=== PATIENT | female | born 1985 | race Caucasian/White ===

== ENCOUNTER 2020-10-04 08:30 | Emergency (ER) | payer OTHER ==
[~2020-10-04] VITALS: Ht 170.2 cm; Wt 84.4 kg
[2020-10-04 08:30] VITALS: BP 148/101
--- NOTE | 2020-10-04 09:03 | PHYS DOC ---
Past History Past Medical History: Hypertension, Migraines Past Surgical History: No Surgical History Alcohol Use: None Adult General Chief Complaint Chief Complaint: HYPERTENSION HPI HPI Patient is a 34-year-old female here for high blood pressure. She has history of hypertension, has taken medications in the past but has been off said medications for greater than 1 year. She used to take HCTZ. Patient has been checking her blood pressure intermittently since being off her medications and reports readings on average of 120-130/80s. Nonetheless, yesterday evening she took her blood pressure and it was found to be at 163/110 which concerned her. She tried calling her primary care physician to discuss this and was scheduled f or follow-up this upcoming week for BP recheck. Nonetheless, patient woke up this morning with dull headache and blood pressure still greater than 130/90 which concerned her prompting her to come into our ER for evaluation. She has no vision changes, no chest pain, no shortness of breath, no changes in motor or sensory function, no neurologic deficits noted Review of Systems Review of Systems Fourteen body systems of review of systems have been reviewed. See HPI for pertinent positives and negative responses, other whitaker all other systems are negative, non-pertinent or non-contributory Allergies Allergies Allergies Coded Allergies Type Severity Reaction Last Updated Verified erythromycin base Allergy Unknown 10/04/20 Yes Physical Exam Physical Exam Constitutional: Well developed, well nourished, no acute distress, non-toxic appearance. HENT: Normocephalic, atraumatic, bilateral external ears normal, oropharynx moist, no oral exudates, nose normal. Eyes: PERRLA, EOMI, conjunctiva normal, no discharge. Neck: Normal range of motion, no tenderness, supple, no stridor. Cardiovascular: Heart rate regular, sinus rhythm, no murmurs rubs or gallops Lungs & Thorax: Bilateral breath sounds clear to auscultation Abdomen: Bowel sounds normal, soft, no tenderness, no masses, no pulsatile masses. Nonsurgical abdomen, no peritoneal signs Skin: Warm, dry, no erythema, no rash. Back: No tenderness, no CVA tenderness. Extremities: No tenderness, no cyanosis, no clubbing, ROM intact, no edema. Neurologic: Alert and oriented X 3, grossly normal motor & sensory function, no focal deficits noted. Psychologic: Affect normal, judgement normal, anxious mood Current Patient Data Vital Signs Vital Signs Date Time Temp Pulse Resp B/P (MAP) Pulse Ox O2 Delivery O2 Flow Rate FiO2 10/04/20 08:30 98.5 85 20 148/101 (117) 98 Room Air EKG EKG [] Radiology/Procedures Radiology/Procedures [] Heart Score Risk Factors: Risk Factors: DM, Current or recent (<one month) smoker, HTN, HLP, family history of CAD, obesity. Risk Scores: Risk Factors: DM, Current or recent (<one month) smoker, HTN, HLP, family history of CAD, obesity. Course & Med Decision Making Course & Med Decision Making Airway patent, breathing nonlabored, vitals remarkable for mild hypertensive reading at 150/100. History and physical exam grossly nonconcerning, no indication for further ER intervention and/or work-up at this time I discussed my hesitancy of starting patient on blood pressure medication given recent high blood pressure readings greater than 140/90 in the past 12 hours. She is anxious about her health which I feel is contributory. She has close follow-up with her PCP this upcoming week which I feel is appropriate, she can have work-up and review of blood pressure log to determine if medical intervention is actually necessary or if this is transient elevation in blood pressure Strict return precautions were discussed with good understanding by patient, all questions and concerns addressed prior to ER departure in stable condition Dragon Disclaimer Dragon Disclaimer This electronic medical record was generated, in whole or in part, using a voice recognition dictation system. Departure Departure: Impression: Primary Impression: Elevated blood pressure reading Additional Impressions: History of hypertension Anxiety about health Disposition: 01 DC HOME SELF CARE/HOMELESS Condition: STABLE Referrals: GINA VILLAR MD (PCP) Patient Instructions: Form - Blood Pressure Record Sheet, How to Take Your Blood Pressure, [id number] Additional Instructions: As discussed prior to ER departure, please ensure you keep follow-up with your primary care physician this upcoming week to discuss history of hypertension and recent hypertensive readings. Please ensure you bring your blood pressure log to said visit As discussed today, I would continue supportive care for your mild dull headac hes using Tylenol as needed, utilize deep breathing exercises and reduce home stresses much as possible If any concerning signs or symptoms present prior to outpatient follow-up please do not hesitate to come back for repeat evaluation and intervention as indicated It was a pleasure to take care of you and I wish you the best going forward Problem Qualifiers MIGUEL BAZZI DO Oct 04, 2020 09:03
== END 2020-10-04 09:00 | disposition home or self-care (01) ==
LOC: ER 08:30
DX: R03.0 Elevated blood-pressure reading, without diagnosis of hypertension (principal); I10 Essential (primary) hypertension; G43.909 Migraine, unspecified, not intractable, without status migrainosus; Z88.1 Allergy status to other antibiotic agents
CPT/HCPCS: 99281

== ENCOUNTER 2020-10-06 14:18 | Emergency (ER) | payer OTHER ==
[~2020-10-06] VITALS: Ht 175.3 cm; Wt 84.7 kg
[2020-10-06] MEDS ORDERED: hydroCHLOROthiazide 25 MG TABLET PO ONE (14:45)
--- NOTE | 2020-10-06 15:11 | RAD ---
INDICATION: Reason: chest tightness,ELEVATED BP / Spl. Instructions: / History: COMPARISON: None. FINDINGS: Single view of chest obtained. Cardiac silhouette is unremarkable. No definite focal airspace consolidation or pulmonary edema. IMPRESSION: * No focal airspace consolidation. Electronically signed by: Wilver Waldron MD (10/06/2020 3:08 PM) [id number]
[2020-10-06] MEDS ORDERED: HYDR-2145 PO (16:02)
--- NOTE | 2020-10-06 16:04 | PHYS DOC ---
Past History Past Medical History: Hypertension, Other Additional Past Medical Histor: lyme disease Past Surgical History: Other Additional Past Surgical Histo: Lasix Alcohol Use: None Adult General Chief Complaint Chief Complaint: HYPERTENSION HPI HPI Patient is a 34 year old female who presents to the Emergency Room complaining of high blood pressure. She had a headache on Monday and took her blood pressure at that time. She states that it was elevated at 166/109. She has been taking over the last few days and it has remained elevated. She used to be on blood pressure medicine but was weaned off as her blood pressure improved. She states that she saw her primary care physician today over a Zoom and they told her that they would need to see her in clinic to start hypertensive medication at that that they cannot see her today as she cannot have 2 visits in 1 day. Patient does not have any symptoms of high blood pressure. She is tearful and worried because her grandma recently was diagnosed with hypertrophic cardiomyopathy. Review of Systems Review of Systems Complete ROS is negative unless otherwise documented in HPI Current Medications Current Medications Current Medications Medications (Trade) Dose Ordered Sig/Chrystal Start Time Stop Time Status Last Admin Dose Admin Hydrochlorothiazide (Hydrodiuril) 25 mg 1X ONCE 10/06/20 14:45 10/06/20 14:53 DC 10/06/20 15:11 25 MG Allergies Allergies Allergies Coded Allergies Type Severity Reaction Last Updated Verified erythromycin base Allergy Unknown 10/04/20 Yes Physical Exam Physical Exam General: Awake, alert, NAD. Well Nourished, well hydrated. Cooperative HEENT: Atraumatic, EOMI, PERRL, airway patent, moist oral mucosa Neck: Supple, trachea midline Respiratory: CTA bilaterally, normal effort, no wheezing/crackles CV: RRR, no murmur, cap refill <2 GI: Soft, nondistended, nontender, no masses MSK: No obvious deformities Skin: Warm, dry, intact Neuro: A&O x3, speech NL, sensory and motor grossly intact, no focal deficits Psych: Normal affect, normal mood, not suicidal or homicidal Current Patient Data Vital Signs Vital Signs Date Time Temp Pulse Resp B/P (MAP) Pulse Ox O2 Delivery O2 Flow Rate FiO2 10/06/20 15:35 155/102 (119) 10/06/20 14:36 99.2 95 18 96 Room Air Lab Results Laboratory Tests Test 10/06/20 15:16 POC Urine HCG, Qualitative hcg negative (Negative) EKG EKG [] Radiology/Procedures Radiology/Procedures [] Heart Score Risk Factors: Risk Factors: DM, Current or recent (<one month) smoker, HTN, HLP, family history of CAD, obesity. Risk Scores: Risk Factors: DM, Current or recent (<one month) smoker, HTN, HLP, family history of CAD, obesity. Course & Med Decision Making Course & Med Decision Making Pertinent Labs and Imaging studies reviewed. (See chart for details) Patient is a 4-year-old female presents to the emergency room with asymptomatic high blood pressure. Chest x-ray was done and is normal. Patient has negative test. We will start her on hydrochlorothiazide. She will follow-up with her primary care physician. I will refer her to cardiology to be evaluated for HOCM. Patient's test results and vitals while in the ED were fully reviewed and discussed with the patient. Patient is stable and at this time does not need admission to the hospital. We have discussed strict return precautions and the importance of following up with their Primary Care Physician. Patient stated understanding and was given an opportunity to ask any questions. Patient is in agreement with plan. Dragon Disclaimer Dragon Disclaimer This electronic medical record was generated, in whole or in part, using a voice recognition dictation system. Departure Departure: Impression: Primary Impression: Hypertension Disposition: 01 DC HOME SELF CARE/HOMELESS Condition: STABLE Referrals: GINA VILLAR MD (PCP) AB PATEL MD Patient Instructions: Hypertension Scripts Hydrochlorothiazide (HYDROCHLOROTHIAZIDE TABLET ) 25 Mg Tablet 25 MG PO DAILY for DIURETIC for 30 Days, #30 TAB 0 Refills Prov: JESSICA SIMON MD 10/06/20 JESSICA SIMON MD Oct 06, 2020 16:04
[2020-10-06 16:07] VITALS: BP 145/102
== END 2020-10-06 16:30 | disposition home or self-care (01) ==
LOC: ER 14:18
DX: I10 Essential (primary) hypertension (principal); Z88.1 Allergy status to other antibiotic agents
CPT/HCPCS: 71045; 81025; 99283

== ENCOUNTER 2022-01-14 09:47 | Emergency (ER) | payer OTHER ==
[~2022-01-14] VITALS: Ht 175.3 cm; Wt 84.7 kg
[~2022-01-14 09:47] MED LIST: HYDR-2145 PO
[2022-01-14 09:49] VITALS: BP 137/92
[2022-01-14] MEDS: ACETAMINOPHEN 500 MG TABLET PO ONE (10:00)
[2022-01-14] MEDS: IBUPROFEN 800 MG TABLET. PO ONE (10:15)
--- NOTE | 2022-01-14 10:28 | RAD ---
XR KNEE _3 VIEWS_LT Clinical Indication: Reason: Fall on ice, left knee injury and pain / Spl. Instructions: / History: Comparison: None. Findings: There is acute traumatic intra-articular longitudinal nondisplaced fracture of the tibial plateau. Th e fracture line reaches the medial cortex of the diaphysis. The intra-articular fracture appears to i nvolve the lateral tibial plateau. There is a small lipohemarthrosis. The tricompartmental joint spac es are maintained. There is patella alyssa. Well-corticated ossific body at the tibial tubercle may be sequela of distant Brenda-Schlatter. IMPRESSION: 1. Acute traumatic intra-articular, nondisplaced longitudinal fracture of the tibial plateau. 2. Small lipohemarthrosis. 3. Patella alyssa. Electronically signed by: Jerome Strickland MD (01/14/2022 10:26 AM) [id number]
[2022-01-14] MEDS ORDERED: IBUP-571 PO (12:08)
[2022-01-14] MEDS ORDERED: MORP-62 PO (12:08)
--- NOTE | 2022-01-14 12:08 | PHYS DOC ---
Past History Past Medical History: Hypertension, Other Additional Past Medical Histor: lyme disease Past Surgical History: Other Additional Past Surgical Histo: Lasix Alcohol Use: None Adult General Chief Complaint Chief Complaint: KNEE INJURY HPI HPI The patient is a 36-year-old female with a history of hypertension and who is otherwise healthy. She presents for evaluation of left knee discomfort anteriorly/inferiorly with onset in the aftermath of a ground-level slip and fall onto the ice prior to arrival. Denies hitting or hurting any other part of her body during the episode. Has not been able to bear weight secondary to discomfort. Review of Systems Review of Systems A 12 point review of systems was completed and was negative except where noted in HPI above. Current Medications Current Medications Current Medications Medications (Trade) Dose Ordered Sig/Chrystal Start Time Stop Time Status Last Admin Dose Admin Acetaminophen (Tylenol) 1,000 mg 1X ONCE 01/14/22 10:00 01/14/22 10:06 DC 01/14/22 10:00 1,000 MG Ibuprofen (Motrin) 800 mg 1X ONCE 01/14/22 10:15 01/14/22 10:16 DC 01/14/22 10:15 800 MG Allergies Allergies Allergies Coded Allergies Type Severity Reaction Last Updated Verified erythromycin base Allergy Unknown 10/04/20 Yes Physical Exam Physical Exam 36-year-old female appearing nontoxic and in no acute distress. Head is normocephalic and atraumatic. Neck is supple and nontender. Oropharynx is moist. Lungs are clear to auscultation at all stations. There is a normal S1 and S2 without rubs or gallops and capillary refill is appropriate, less than 2 seconds globally. Abdomen is soft, nontender nondistended. Skin is warm and dry without cyanosis, clubbing or edema. Psychiatrically, the patient demonstrates appropriate mood and affect and is alert. Evaluation of the left lower extremity is remarkable for mild tenderness and swelling to the inferior aspect of the left knee anteriorly. Mild discomfort with ranging but patient does have full active and passive range of motion at the left knee. No discomfort with ranging in any other joint of the left lower extremity. Left lower extremity is neurovascularly intact distally with strength out of 5, sensation intact light touch in all nerve distributions, DP and PT pulse 2+, capillary refill less than 2 seconds, foot warm and well-perfused. Current Patient Data Vital Signs Vital Signs Date Time Temp Pulse Resp B/P (MAP) Pulse Ox O2 Delivery O2 Flow Rate FiO2 01/14/22 09:49 98.4 80 16 137/92 (107) 98 Room Air EKG EKG [] Radiology/Procedures Radiology/Procedures XR KNEE _3 VIEWS_LT Clinical Indication: Reason: Fall on ice, left knee injury and pain / Spl. Instructions: / History: Comparison: None. Findings: There is acute traumatic intra-articular longitudinal nondisplaced fracture of the tibial plateau. The fracture line reaches the medial cortex of the diaphysis. The intra-articular fracture appears to involve the lateral tibial plateau. There is a small lipohemarthrosis. The tricompartmental joint spaces are maintained. There is patella alyssa. Well-corticated ossific body at the tibial tubercle may be sequela of distant Brenda-Schlatter. IMPRESSION: 1. Acute traumatic intra-articular, nondisplaced longitudinal fracture of the tibial plateau. 2. Small lipohemarthrosis. 3. Patella alyssa. Electronically signed by: Jerome Strickland MD (01/14/2022 10:26 AM) [id number] DICTATED AND SIGNED BY: JEROME STRICKLAND MD DATE: 01/14/22 1022 CC: GINA VILLAR MD; JOEL LO MD ~MTH0 0 [] Heart Score C/O Chest Pain: No Risk Factors: Risk Factors: DM, Current or recent (<one month) smoker, HTN, HLP, family history of CAD, obesity. Risk Scores: Risk Factors: DM, Current or recent (<one month) smoker, HTN, HLP, family history of CAD, obesity. Course & Med Decision Making Course & Med Decision Making Patient with nondisplaced tibial plateau fracture as above. Neurovascularly intact to the distal left lower extremity. Case is discussed with Dr. Adhikari of orthopedics who recommends nonweightbearing, crutches, knee immobilizer and follow-up in the office with him in the next 1 to 2 weeks. Will discharge with medication for discomfort. Patient understands that if he feels worse instead of better or develops other new symptoms of concern that she will need to return to the emergency department immediately for reevaluation. All questions are answered. Dragon Disclaimer Dragon Disclaimer This electronic medical record was generated, in whole or in part, using a voice recognition dictation system. Departure Departure: Impression: Primary Impression: Tibial plateau fracture, left Disposition: HOME / SELF CARE / HOMELESS Condition: IMPROVED Referrals: CHELY MCINTOSH Jr. DO Patient Instructions: Tibial Fracture, Adult Additional Instructions: Follow-up very closely with Dr. Mcintosh of orthopedics. Please call at the telephone number provided for an appointment to be seen. Keep the knee immobilizer in place to support and protect your injured knee. Use the crutches to stay off your injured leg until the orthopedic doctor clears you to stop using them. Take a 600 mg ibuprofen pill every 6 hours as needed for discomfort, with food to prevent stomach upset. For pain not well controlled with ibuprofen you may take an oral morphine pill every 6 hours as needed. Be careful because oral morphine can make you sleepy so no drive or work or operate machinery while taking it. Return to the emergency department right away for worsening symptoms of any kind or with any other new symptoms of concern. Scripts Morphine Sulfate (MORPHINE SULFATE) 15 Mg Tablet 1 TAB PO QID PRN for breakthrough/severe pain, #11 TAB Prov: JOEL LO MD 01/14/22 Ibuprofen (Ibu) 600 Mg Tablet 1 TAB PO Q6HRS PRN for PAIN for 7 Days, #28 TAB 0 Refills Prov: JOEL LO MD 01/14/22 Problem Qualifiers Primary Impression: Tibial plateau fracture, left Encounter type: initial encounter Fracture type: closed Qualified Codes: S82.142A - Displaced bicondylar fracture of left tibia, initial encounter for closed fracture JOEL LO MD Jan 14, 2022 12:08
== END 2022-01-14 12:44 | disposition home or self-care (01) ==
LOC: ER 09:47
DX: S82.142A Displaced bicondylar fracture of left tibia, initial encounter for closed fracture (principal); I10 Essential (primary) hypertension; Z88.1 Allergy status to other antibiotic agents; W00.0XXA Fall on same level due to ice and snow, initial encounter; Y93.89 Activity, other specified; Y92.89 Other specified places as the place of occurrence of the external cause; Y99.8 Other external cause status
CPT/HCPCS: 29505; 73562; 99283